=== PATIENT | female | born 1965 | race Caucasian/White ===

== ENCOUNTER → 2021-04-01 | Outpatient (CLI) | payer BC ==
[~2021-04-01] MED LIST: ASA/1TAB PO; DEXL60CA2 PO; DEXT30TA16 PO; ESTR0.5T PO; FURO20TA3 PO; IV NORMAL SALINE 1000ML BAG 1,000 ML IV ONE; IV NORMAL SALINE 500ML BAG 500 ML IV ONE; LISI1TAB39 PO; METF500T16 PO; MULT-212 PO; OMEG500C PO
[2021-04-01 10:42] VITALS: BP 136/79
== END | disposition home or self-care (01) ==
LOC: OPS 09:57
PROVIDERS: ATTEND Internal Medicine
DX: E86.0 Dehydration (principal); K31.84 Gastroparesis; E78.5 Hyperlipidemia, unspecified; K21.9 Gastro-esophageal reflux disease without esophagitis
CPT/HCPCS: 96360; 96361; J7030; J7040